=== PATIENT | male | born 1965 | race Caucasian/White ===

== ENCOUNTER 2016-12-20 12:31 | Emergency (ER) | payer MEDICAID, MEDICARE ==
[2016-12-20] MEDS ORDERED: Ketorolac Tromethamine 60 MG/2 ML VIAL ONE (13:08)
== END 2016-12-20 13:27 | disposition home or self-care (01) ==
LOC: ERS 12:31
DX: G89.29 Other chronic pain (principal); M25.511 Pain in right shoulder; F25.0 Schizoaffective disorder, bipolar type
CPT/HCPCS: 96372; J1885

== ENCOUNTER 2017-01-07 10:34 | Emergency (ER) | payer MEDICARE ==
[2017-01-07] MEDS ORDERED: Ketorolac Tromethamine 30 MG/ML VIAL ONE (12:59)
--- NOTE | 2017-01-07 14:22 | RAD ---
LUMBAR SPINE SERIES 3 VIEWS: HISTORY: Chronic back pain. FINDINGS: Vertebral bodies are normal in height. There is scoliotic change convex to the right. Degenerative osteophytes are seen without significant disk narrowing. Due to some obliquity, it is difficult to assess for possible pars defect at L5-S1. IMPRESSION: 1. Questionable pars defects at the L5-S1 level. Oblique views might be helpful in assessment of t his if indicated. 2. Scoliosis convex to the right. POS: [facility]
== END 2017-01-07 14:09 | disposition home or self-care (01) ==
LOC: ERS 10:34
DX: M41.9 Scoliosis, unspecified (principal); G89.29 Other chronic pain; E78.00 Pure hypercholesterolemia, unspecified; F25.9 Schizoaffective disorder, unspecified; F31.9 Bipolar disorder, unspecified
CPT/HCPCS: 72100; 96372; J1885

== ENCOUNTER 2017-02-05 07:07 | Emergency (ER) | payer MEDICAID, MEDICARE ==
[2017-02-05] MEDS ORDERED: Ketorolac Tromethamine 60 MG/2 ML VIAL ONE (08:45)
== END 2017-02-05 09:15 | disposition home or self-care (01) ==
LOC: ERS 07:07
DX: M54.5 Low back pain (principal); E78.00 Pure hypercholesterolemia, unspecified; F31.9 Bipolar disorder, unspecified; F20.9 Schizophrenia, unspecified; F25.9 Schizoaffective disorder, unspecified
CPT/HCPCS: 96372; 99406; J1885

== ENCOUNTER 2017-03-18 08:24 | Emergency (ER) | payer MEDICAID, MEDICARE ==
--- NOTE | 2017-03-18 10:14 | RAD ---
AP PELVIS: Indication: History of multiple falls, now with pelvic region soreness. IMPRESSION: No acute fracture or subluxation. COMMENTS: No comparisons are available. There are small phleboliths in the right hemipelvis. Mild degenerative change seen involving both hips. POS: [facility]
--- NOTE | 2017-03-18 10:16 | RAD ---
LEFT HIP TWO VIEWS: History: Fall. Comparison: None. FINDINGS: No displaced fracture or malalignment. Obturator rings are intact. Left SI joint is unremarkable. Mild enthesopathic change of the greater trochanter. IMPRESSION: No acute abnormality. POS: [facility]
--- NOTE | 2017-03-18 10:17 | RAD ---
PA AND LATERAL CHEST: Indication: History of multiple falls with chest pain. Comparison: 06-06-15 FINDINGS: Lungs are clear. No pleural effusion or pneumothorax is evident. No acute osseous abnormality is note d. Cardiomediastinal silhouette is normal. There is multilevel spondylosis of the thoracic spine. IMPRESSION: No acute cardiopulmonary abnormality. POS: [facility]
== END 2017-03-18 10:21 | disposition home or self-care (01) ==
LOC: ERS 08:24
DX: J11.1 Influenza due to unidentified influenza virus with other respiratory manifestations (principal); E78.00 Pure hypercholesterolemia, unspecified; F25.0 Schizoaffective disorder, bipolar type; Z79.899 Other long term (current) drug therapy
CPT/HCPCS: 71020; 72170; 87804

== ENCOUNTER 2018-06-22 07:29 | Outpatient (CLI) | payer MEDICARE ==
--- NOTE | 2018-06-22 08:21 | MRI ---
FCervical spine MRI without contrast: 06/22/2018 COMPARISON: None HISTORY: Cervical radiculopathy TECHNIQUE: Multiplanar multisequence MR imaging of the cervical spine provided without contrast FINDINGS: Sagittal STIR imaging demonstrates no focal area of osseous marrow edema. C2-3: No central canal or neural foraminal stenosis. Mild left facet hypertrophy. C3-4: Minimal disc bulge with no central canal stenosis. Mild left facet and right uncovertebral oste ophyte formation with no associated neural foraminal stenosis. C4-5: Small central disc protrusion. Disc desiccation and mild disc bulge. No significant central can al or neural foraminal stenosis. C5-6: There is disc space narrowing and disc desiccation with a disc osteophyte complex causing mild central canal stenosis. On the basis of bilateral facet and uncovertebral osteophyte formation there is moderate right and severe left neural foraminal stenosis. C6-7: There is disc desiccation and disc space narrowing. Minimal disc bulge with no significant cent ral canal stenosis. Secondary to disc bulge, bilateral facet hypertrophy, and bilateral uncovertebral osteophyte formation, there is severe bilateral neural foraminal stenosis. C7-T1: No significant central canal or neural foraminal stenosis. No focal area of abnormal signal intensity is identified within the cervical cord. IMPRESSION: Significant multilevel cervical spine degenerative change as described above.
== END 2018-06-22 07:30 | disposition home or self-care (01) ==
LOC: MRI 07:29
PROVIDERS: ATTEND Family Medicine
DX: M47.22 Other spondylosis with radiculopathy, cervical region (principal)
CPT/HCPCS: 72141

== ENCOUNTER 2019-12-11 14:03 | Outpatient (CLI) | payer MEDICARE ==
--- NOTE | 2019-12-11 15:32 | CT ---
ORBIT CT WITHOUT CONTRAST: COMPARISON: 11/28/2019. HISTORY: Previous known foreign body in the right globe. FINDINGS: Visualized brain parenchyma does not demonstrate any acute abnormality. Adequate aeration of the visualized paranasal sinuses. No maxillofacial fracture. Visualized aerodigestive tract is patent. There is a persistent radiopaque metallic foreign body in the anterior slightly inferior aspect of th e right globe. This density measures 0.4 cm. Based on the images provided, this density may be in the anterior chamber of the right globe. Bilateral ocular lenses appear to be intact. Symmetric attenuation the optic nerves and ocular rectus muscles. IMPRESSION: Persistent foreign body in the right globe. Results of the study discussed with Farrah at 12/11/2019 at 4:19PM Code CR Transcribed Date/Time: 12/11/2019 3:44 PM
== END 2019-12-11 14:04 | disposition home or self-care (01) ==
LOC: BICCT 14:03
PROVIDERS: ATTEND Ophthalmology Retina Specialist
DX: T15.01XD Foreign body in cornea, right eye, subsequent encounter (principal)
CPT/HCPCS: 70480

== ENCOUNTER 2019-12-28 08:12 | Day surgery (SDC) | payer MEDICARE ==
[2019-12-26 12:41] VITALS: BMI 23.7
[~2019-12-28 08:12] MED LIST: Famotidine/PF 20 mg/2ml Vial ONE; Fentanyl 100 MCG/2 ML VIAL ONE; Fluorouracil 100 MG, Enoxaparin Sodium 25 MG, EPINEPHrine 0.3 MG in Ophthalmic Irrigati... IRR SCH; Metoclopramide HCl 10 MG/2 ML VIAL ONE; Midazolam HCl 2 mg/2 ml Vial ONE; Ondansetron PF 4 MG/2 ML Vial ONE
[2019-12-28] MEDS ORDERED: Phenylephrine 2.5% Ophth Soln 5 ML BOT ONE (08:17)
[2019-12-28] MEDS ORDERED: Cyclopentolate 1% Opth Drop 2 ML BOT ONE (08:17)
[2019-12-28] MEDS ORDERED: CEFAZOLIN 1 GM VIAL ONE (09:42)
[2019-12-28] MEDS ORDERED: PROPOFOL 200 MG/20 ML VIAL ONE (09:42)
[2019-12-28] MEDS ORDERED: Atropine Sulfate 1% Ophth Ointment 3.5 gm Tube ONE (09:42)
[2019-12-28] MEDS ORDERED: Lidocaine 1% PF 5 ML VIAL ONE ×2 (09:42)
[2019-12-28] MEDS ORDERED: Maxitrol 0.1% Opth Oint 3.5 GM TUBE ONE (09:42)
[2019-12-28] MEDS ORDERED: Lidocaine 4% PF 5 ML AMP ONE (09:42)
[2019-12-28] MEDS ORDERED: Enoxaparin Sodium 30 MG/0.3 ML SYRINGE ONE (09:42)
[2019-12-28] MEDS ORDERED: Triamcinolone 40 MG/ML VIAL ONE (09:42)
[2019-12-28] MEDS ORDERED: Metoclopramide 10 MG/10 ML UDCUP ONE (09:42)
[2019-12-28] MEDS ORDERED: Acetylcholine 20 MG/2 ML VIAL (OR CHARGE) ONE (09:42)
[2019-12-28] MEDS ORDERED: Bupivacaine PF 0.75% SDV 10 ML ONE (09:42)
[2019-12-28] MEDS ORDERED: Ondansetron PF 4 MG/2 ML Vial ONE (09:42)
--- NOTE | 2019-12-28 23:32 | OP ---
DATE OF PROCEDURE: 12/28/2019 PREOPERATIVE DIAGNOSES: 1. Intra-ocular foreign body. 2. Cataract. PROCEDURES: Pars plana vitrectomy, pars plana lensectomy, removal of intraocular foreign body, and secondary intraocular lens placement. ANESTHESIA: General endotracheal anesthesia. PROCEDURE IN DETAIL: The patient was identified in the preoperative holding area. Appropriate informed consent for the planned surgical procedure on the right eye had been obtained. The patient was transported to the operative suite and appropriate cardiopulmonary monitoring was established. General endotracheal anesthesia was initiated and a local retrobulbar block was placed. 25-gauge trocar was placed in the conjunctiva and sclera supratemporally, inferotemporally, supranasally. Infusion line was placed inferotemporally. The iris was noted to be at 360 degree posterior synechiae and iris hooks were used to open the pupil. The cataract was noted this time. Pars plana vitrectomy was initiated and substantial clearing of the vitreous base was accomplished, specifically noting that there was no presence of a retinal detachment. Intra-ocular foreign body was known to be inferiorly and an area of inferior inflammation was identified. The inferior inflammation was dissected until the intra-ocular foreign body was identified. A 6 mm superior scleral tunnel was created. The foreign body was grasped with forceps and externalized without complication through the 6 mm wound. Superior wound was suture closed with three 7-0 Vicryl sutures and the wound was noted to be watertight. A 3 mm superior nasal and superior temporal clear cornea incision was created. A 26.0 diopter [id number] intra-ocular lens was introduced into the anterior chamber. Haptics were externalized via the Yamane technique and the optic was noted to center well. Supratemporal clear cornea wound was closed with two 10-0 nylon sutures. Retrobulbar Kenalog and subconjunctival Ancef were placed. Antibiotic ointment was placed. Eye was patched and shielded. The patient was taken to postoperative recovery unit in good condition having suffered no immediate perioperative complication. The patient was instructed to keep patch and shield on, avoid lifting or bending. Followup in the morning with Dr. Naik. Job ID: [id number]
== END 2019-12-28 15:15 | disposition home or self-care (01) ==
LOC: SDC 08:12
PROVIDERS: ATTEND Ophthalmology Retina Specialist
PROC: 08RJ3JZ Replacement of Right Lens with Synthetic Substitute, Percutaneous Approach (ICD-10-PCS; principal; 2019-12-28)
DX: H44.7 Retained (old) intraocular foreign body, nonmagnetic (principal); H26.9 Unspecified cataract; F25.0 Schizoaffective disorder, bipolar type; Z79.899 Other long term (current) drug therapy; Z88.0 Allergy status to penicillin; Z88.8 Allergy status to other drugs, medicaments and biological substances; Z91.041 Radiographic dye allergy status
CPT/HCPCS: J0171; J0690; J1650; J2001; J2250; J2405; J2704; J2765; J3010; J3301; J3490; J9190; S0028